=== PATIENT | female | born 1985 | race African-American/Black ===

== ENCOUNTER 2018-06-20 22:15 | Emergency (ER) | payer MEDICARE, MEDICAID ==
[~2018-06-20] VITALS: Ht 160 cm; Wt 66.0 kg
[2018-06-21] MEDS ORDERED: IBUPROFEN 800MG TABLET PO ONE (00:30)
[2018-06-21 01:31] VITALS: BP 132/86
== END 2018-06-21 01:31 | disposition home or self-care (01) ==
LOC: ER 22:15
DX: S16.1XXA Strain of muscle, fascia and tendon at neck level, initial encounter (principal); M25.511 Pain in right shoulder; M54.89 Other dorsalgia; G40.909 Epilepsy, unspecified, not intractable, without status epilepticus; Z88.8 Allergy status to other drugs, medicaments and biological substances; V43.52XA Car driver injured in collision with other type car in traffic accident, initial encounter; Y93.89 Activity, other specified; Y92.488 Other paved roadways as the place of occurrence of the external cause
CPT/HCPCS: 81025; 99283